=== PATIENT | male | born 1980 | race African-American/Black ===

== ENCOUNTER 2021-10-24 13:04 | Emergency (ER) | payer OTHER ==
[~2021-10-24] VITALS: Ht 180.3 cm; Wt 73.0 kg
[2021-10-24] MEDS ORDERED: IBUPROFEN 600MG TABLET PO ONE (14:15)
[2021-10-24] MEDS ORDERED: ACETAMINOPHEN 325MG TABLET PO ONE (14:45)
[2021-10-24] MEDS ORDERED: BENZ1LOZ60 MT (15:09)
[2021-10-24] MEDS ORDERED: GUAI-741 MT (15:09)
[2021-10-24 16:26] VITALS: BP 127/75
== END 2021-10-24 16:26 | disposition home or self-care (01) ==
LOC: ER 13:18
DX: J06.9 Acute upper respiratory infection, unspecified (principal); Z20.822 Contact with and (suspected) exposure to COVID-19; Z86.16 Personal history of COVID-19; Z87.828 Personal history of other (healed) physical injury and trauma; Z98.890 Other specified postprocedural states
CPT/HCPCS: 87426; 87804; 99283